=== PATIENT | male | born 1975 | race Caucasian/White ===

== ENCOUNTER 2023-01-29 00:36 | Emergency (ER) | payer MEDICARE ==
[~2023-01-29] VITALS: Ht 190.5 cm; Wt 95.2 kg
[2023-01-29] MEDS ORDERED: HYDROXYZINE HCL25 MG PO (00:46)
[2023-01-29] MEDS ORDERED: HYDROCODON-ACE1 EAC1 PO (00:46)
--- OUTSIDE RECORDS SUMMARY | 2023-01-29 02:10 | XMS ---
PreManage Notification: [employer] Events No recent Security Events currently on file CRITERIA MET - PDMP CARE PROVIDERS VIRGEN VO [facility] Current PHONE: Unknown Gwen has no Care Guidelines for this patient. EGisele VISIT COUNT (12 MO.) 1 KEVIN Carrasco TOTAL 1 NOTE: Visits indicate total known visits. ED/UCC VISIT TRACKING (12 MO.) 01/29/2023 00:37 KEVIN Cardona OR TYPE: Emergency COMPLAINT: - LT HIP PAIN INPATIENT VISIT TRACKING (12 MO.) No inpatient visits to display in this time frame [email or web address]
[2023-01-29 03:50] VITALS: BP 160/92
== END 2023-01-29 03:50 | disposition short-term general hospital (02) ==
LOC: ED 00:36
DX: T84.021A Dislocation of internal left hip prosthesis, initial encounter (principal); Y79.2 Prosthetic and other implants, materials and accessory orthopedic devices associated with adverse incidents; Z20.822 Contact with and (suspected) exposure to COVID-19; Z96.643 Presence of artificial hip joint, bilateral; Z88.0 Allergy status to penicillin; Z88.8 Allergy status to other drugs, medicaments and biological substances; Z79.899 Other long term (current) drug therapy
CPT/HCPCS: 27265; 73501; 73502; 99284-25; C9803; J2704; J3010; U0002